=== PATIENT | male | born 1950 | race Caucasian/White ===

== ENCOUNTER 2024-05-23 19:04 | Emergency (ER) | payer MEDICARE | END 2024-05-23 20:30 | disposition home or self-care (01) | LOC: CC.ED 19:04 | DX: S00.03XA Contusion of scalp, initial encounter (principal); S00.31XA Abrasion of nose, initial encounter; S00.81XA Abrasion of other part of head, initial encounter; I10 Essential (primary) hypertension; W19.XXXA Unspecified fall, initial encounter | CPT/HCPCS: 70450; 99283 ==